=== PATIENT | male | born 1980 | race Caucasian/White ===

== ENCOUNTER 2018-02-07 00:28 | Emergency (ER) | payer SELFPAY ==
[~2018-02-07] VITALS: Ht 182.8 cm; Wt 81.6 kg
[2018-02-07 00:28] VITALS: BP 122/76
[~2018-02-07 00:28] MED LIST: ATARAX25 MG PO; BUT/APAP/CAF TAB; CLINDAMYCIN HC300 MG PO; FLEXERIL10 MG PO; HYDROCODONE BIT1 T11 PO; IBU-8800 MG PO; MOTRIN800 MG PO; PERCOCET 325 MG1 TA5 PO; SEPTRA DS 800 M1 TAB PO; SUBOXONE MIS 8-2; TORADOL10 MG PO; TRAMADOL HCL50 MG PO; VIBRA-TAB100 MG PO; VIBRAMYCIN100 MG PO; VICODIN 5/500 505 MG PO; VICODIN ES 7501 TAB PO; VISTARIL25 M1 PO; ZITHROMAX250 MG PO
== END 2018-02-07 01:14 | disposition left against medical advice (07) ==
LOC: ED 00:28
DX: S01.91XA Laceration without foreign body of unspecified part of head, initial encounter (principal); M25.511 Pain in right shoulder; M54.2 Cervicalgia; Z88.0 Allergy status to penicillin; Z88.6 Allergy status to analgesic agent; W13.8XXA Fall from, out of or through other building or structure, initial encounter; Y93.01 Activity, walking, marching and hiking; Y92.89 Other specified places as the place of occurrence of the external cause; Y99.8 Other external cause status